=== PATIENT | female | born 1970 | race Caucasian/White ===

== ENCOUNTER 2016-11-06 09:01 | Emergency (ER) | payer BC ==
--- NOTE | 2016-11-06 09:42 | ER NURSING DOCUMENTATION ---
Nurse's Notes [facility] Name:Alem Murrieta Age:46 yrs Sex:Female :1970 Arrival Date:11/06/2016 Time:09:01 BedPortable Radiology Private MD: Diagnosis:Foot Contusion Presentation: 11/06 09:08 Presenting complaint: Patient states: Right foot stepped on by a horse [employer]. Transition tg of care: patient was not received from another setting of care. 09:08 Acuity: LEONELA 4 tg 09:08 Method Of Arrival: Private Vehicle tg Triage Assessment: 09:10 General: Appears uncomfortable, Behavior is cooperative, pleasant. Pain: Complains of tg pain in dorsum of right foot. Neuro: Level of Consciousness is awake, alert. Respiratory: Airway is patent. Derm: Skin is Skin is pink, warm & dry. Bruising that is dark purple, on top of right foot. Musculoskeletal: Circulation, motion, and sensation intact. Injury Description: Crush injury. Historical: - Allergies: Vancomycin (Rash); narcotics; - Home Meds: 1. None - PMHx: sepsis from cellulitis; - PSHx: LUMPECTOMY; TONSILLECTOMY; APPENDECTOMY; - Tetanus: refused today unknown. - Ebola Screening: : Patient negative for fever greater than or equal to 101.5 degrees Fahrenheit, and additional compatible Ebola Virus Disease symptoms. Patient denies exposure to infectious person. Patient denies travel to an Ebola-affected area in the 21 days before illness onset. No symptoms or risks identified at this time. . - Immunization history: Flu Vaccine unknown. - Social history: Smoking status: Patient states was never smoker of tobacco. Screenin:40 Infectious Disease Risk None. Abuse screen: Denies threats or abuse. Nutritional sc1 screening: No deficits noted. Vital Signs: 09:06 BP 110 / 74; Pulse 75; Resp 12; Temp 98.1(O); Pulse Ox 95% on R/A; Weight 66.68 kg (R); arc Height 5 ft. 4 in. (162.56 cm) (R); Pain 2/10; 09:06 Body Mass Index 25.23 (66.68 kg, 162.56 cm) arc ED Course: 09:06 Patient arrived in ED. arc 09:08 Tellez, Jarod, RN is Primary Nurse. tg 09:08 Triage completed. tg 09:33 Shahab Vasquez MD is Attending Physician. cd 09:39 Ortho shoe/post op shoe applied to right foot. nc1 09:40 Valuables Remains with patient. nc1 Administered Medications: No medications were administered Outcome: 09:34 Discharge ordered by . cd 09:40 Discharged to home ambulatory. nc1 09:40 Condition: stable 09:40 Discharge instructions given to patient, Instructed on discharge instructions, follow up and referral plans. Demonstrated understanding of instructions. 09:[address] [place] [facility] [place]charge F/U Call: Spoke with: patient. Overall Care on a scale of 1-10 with 10 lc being the best care, you rate our care as: Other comments: DOING BETTER, NO CONCERNS Signatures: Jarod Tellez RN RN Kat Dewitt RN RN Ximena Li RN RN [facility] [place] Shahab Vasquez MD MD cd Chew, Amelia, Reg Reg arc
--- NOTE | 2016-11-06 09:42 | ER PHYSICIAN DOCUMENTATION ---
Physician Documentation [facility] Name:Alem Murrieta Age:46 yrs Sex:Female :1970 Arrival Date:11/06/2016 Time:09:01 BedPortable Radiology Private MD: Shahab Kennedy Disposition: 11/06/16 09:34 Discharged to Home/Self Care. Impression: Foot Contusion. - Condition is Good. - Discharge Instructions: CONTUSION, Foot. - Medical Reconciliation form form. - Follow up: Private Physician; When: 7 - 10 days; Reason: Recheck today's complaints, Continuance of care. - Problem is new. - Symptoms are unchanged. HPI: 11/06 09:10 This 46 yrs old Female presents to ER via Private Vehicle with complaints of cd Foot Injury. 09:10 The patient presents with a crush injury, a horse stepped on his foot, swelling, cd tenderness. The complaints affect the right foot. Onset: The symptom(s)/episode began/occurred acutely, just prior to arrival. Associated signs and symptoms: The patient has no apparent associated signs or symptoms. Historical: - Allergies: Vancomycin (Rash); narcotics; - Home Meds: 1. None - PMHx: sepsis from cellulitis; - PSHx: LUMPECTOMY; TONSILLECTOMY; APPENDECTOMY; - Tetanus: refused today unknown. - Ebola Screening: : Patient negative for fever greater than or equal to 101.5 degrees Fahrenheit, and additional compatible Ebola Virus Disease symptoms. Patient denies exposure to infectious person. Patient denies travel to an Ebola-affected area in the 21 days before illness onset. No symptoms or risks identified at this time. . - Immunization history: Flu Vaccine unknown. - Social history: Smoking status: Patient states was never smoker of tobacco. ROS: 09:10 MS/extremity: Positive for contusion, ecchymosis, swelling, tenderness, of the dorsum cd of right foot. 09:10 All other systems are negative. Exam: 09:10 Constitutional: The patient appears in no acute distress, alert, awake, anxious. cd 09:10 Musculoskeletal/extremity: Extremities: grossly normal except: noted in the dorsum of right foot: contusion, ecchymosis, swelling, tenderness, ROM: limited active range of motion due to pain, Circulation is intact in all extremities. Sensation intact. Calcaneus exam normal. 09:10 Skin: Appearance: normal except for affected area. cd Vital Signs: 09:06 BP 110 / 74; Pulse 75; Resp 12; Temp 98.1(O); Pulse Ox 95% on R/A; Weight 66.68 kg (R); arc Height 5 ft. 4 in. (162.56 cm) (R); Pain 2/10; 09:06 Body Mass Index 25.23 (66.68 kg, 162.56 cm) arc MDM: 09:12 Differential diagnosis: fracture, contusion. cd 09:30 Data reviewed: vital signs, nurses notes, old medical records, radiologic studies, and cd as a result, I will discharge patient. Data interpreted: Pulse oximetry: on room air is 95 %. Interpretation: normal. Counseling: I had a detailed discussion with the patient and/or guardian regarding: the historical points, exam findings, and any diagnostic results supporting the discharge/admit diagnosis, radiology results, the need for outpatient follow up, for a recheck, with the patient's primary care provider, to return to the emergency department if symptoms worsen or persist or if there are any questions or concerns that arise at home. Response to treatment: the patient's symptoms have markedly improved after treatment, the patient's condition has returned to base line. 09:33 Patient medically screened. cd 11/06 10:01 Order name: FOOT;[address] [place] [id number] EDWV 11/06 09:33 Order name: ORTHO: 2" Shola Wrap; Complete Time: 09:41 cd 11/06 09:33 Order name: Post Op Shoe; Complete Time: :41 cd Dispensed Medications: No medications were administered Signatures: Jarod Tellez, RN RN tg Ximena Li, HENRY RN sc1 Shahab Vasquez MD MD
--- NOTE | 2016-11-06 10:00 | RADIOLOGY REPORT ---
HISTORY: Right foot stepped on by horse. History of fourth metatarsal fracture. COMPARISON: None. FINDINGS: Three views of the right foot were performed. There is no acute fracture or dislocation. There is mild soft tissue swelling overlying the dorsum of the forefoot. The bones are normally mineralized and aligned. No radiodense foreign body is seen. IMPRESSION: Mild soft tissue swelling. No evidence of acute fracture or malalignment. Final Electronic Signature: This report was electronically signed by Ousmane Meeks MD on 11/07/19 17 9:58 AM. jaci /
== END 2016-11-06 09:42 | disposition home or self-care (01) ==
LOC: ER 09:01
DX: S90.31XA Contusion of right foot, initial encounter (principal); W55.12XA Struck by horse, initial encounter; Y92.838 Other recreation area as the place of occurrence of the external cause
CPT/HCPCS: 99283